=== PATIENT | male | born 1980 | race Caucasian/White ===

== ENCOUNTER → 2016-11-11 | Outpatient (CLI) | payer MEDICARE ==
[2016-11-11 15:50] LABS: HEMOGLOBIN 14.8 gm/dl (14.0-17.5); RED BLOOD COUNT 4.64 M/UL (4.20-5.50); WHITE BLOOD COUNT 3.9 K/UL (4.5-11.0)
[2016-11-11 16:14] LABS: BUN/CREATININE RATIO 10 (0-10)
== END ==
LOC: LAB 15:17
PROVIDERS: Internal Medicine Rheumatology
DX: M33.90 Dermatopolymyositis, unspecified, organ involvement unspecified (principal)
CPT/HCPCS: 36415; 80053; 82550; 85025

== ENCOUNTER → 2021-12-22 | Outpatient (CLI) | payer OTHER ==
[~2021-12-22] MED LIST: DOXYCYCLINE MON50 MG PO; FOLIC ACID 1 MG1 MG PO; IMITREX100 MG PO; LOVENOX SY40 MG/0.4 INJ; METHOTREXATE IM; MULTIVITAMINS1 EAC2 PO; PERCOCET 5/325 T1 EA PO; PLAQUENIL 200200 MG PO; PRISTIQ ER50 MG PO; ZOFRAN4 MG PO
[2021-12-22 17:09] LABS: RED BLOOD COUNT 4.7 M/UL (4.20-5.50); WHITE BLOOD COUNT 4.9 K/UL (4.5-11.0)
[2021-12-22 17:12] LABS: BUN/CREATININE RATIO 11 (0-10)
== END ==
LOC: LAB 16:25
PROVIDERS: Internal Medicine Rheumatology
DX: R52 Pain, unspecified (principal)
CPT/HCPCS: 36415; 80053; 81001; 82550; 85025; 85652; 86140

== ENCOUNTER → 2021-12-23 | Outpatient (CLI) | payer OTHER ==
[2021-12-23 16:45] LABS: HEMOGLOBIN 15.1 gm/dl (14.0-17.5); RED BLOOD COUNT 4.76 M/UL (4.20-5.50); WHITE BLOOD COUNT 3.7 K/UL (4.5-11.0)
[2021-12-23 17:20] LABS: BUN/CREATININE RATIO 9 (0-10)
[2021-12-25 07:13] LABS: RPR Non Reactive (Non Reactive)
[2021-12-25 08:18] LABS: HIV AB/P24 AG SCREEN Non Reactive (Non Reactive)
[2021-12-25 09:18] LABS: HBSAG SCREEN Negative (Negative); HCV AB <0.1 (0.0-0.9); HEP A AB, IGM Negative (Negative); HEP B CORE AB, IGM Negative (Negative)
[2021-12-26 01:07] LABS: CHLAMYDIA TRACHOMATIS, NAA Negative (Negative); NEISSERIA GONORRHOEAE, NAA Negative (Negative)
== END ==
LOC: LAB 16:08
PROVIDERS: Nurse Practitioner Family
DX: G43.909 Migraine, unspecified, not intractable, without status migrainosus (principal); Z11.3 Encounter for screening for infections with a predominantly sexual mode of transmission; Z13.29 Encounter for screening for other suspected endocrine disorder; E53.8 Deficiency of other specified B group vitamins
CPT/HCPCS: 36415; 80053; 80061; 80074; 82607; 84439; 84443; 85025; 86592; 87389

== ENCOUNTER → 2022-03-17 | Outpatient (CLI) | payer OTHER ==
[~2022-03-17] MED LIST changes: +ADDERALL PO; +ADDERALL XR 2020 MG PO; +CALCIPOTRIENE60 ML TOP; +CEPHALEXIN500 MG PO; +CLINDAMYCIN PHO30 ML TOP; +CLONIDINE HCL0.2 MG PO; +CYANOCOBAL1000 MCG/1 INJ; +DESVENLAFAXINE 25 MG PO; +EUCRISA 2% TOP; +GINSENG PO; +HUMIRA40 MG/0.4 INJ; +MAGNESIUM200 MG PO; +METHOTREXATE25 MG/ML INJ; +MUPIROCIN22 GM; +RETIN A 0.1% TOP; +RIZATRIPTAN5 M1 PO; +VITAMIN C1000 MG PO; +ZINC PO
== END ==
LOC: OPSV2 10:00
DX: Z01.810 Encounter for preprocedural cardiovascular examination (principal)
CPT/HCPCS: 93005

== ENCOUNTER → 2022-03-22 | Day surgery (SDC) | payer OTHER ==
[~2022-03-22] MED LIST changes: +HYDROCODON-ACE1 EAC4 PO
== END | disposition home or self-care (01) ==
LOC: OR 06:21
DX: J34.2 Deviated nasal septum (principal); J34.3 Hypertrophy of nasal turbinates; R04.0 Epistaxis
CPT/HCPCS: C1726; J0690; J1100; J1170; J2001; J2250; J2405; J2704; J3010

== ENCOUNTER → 2022-04-02 | Outpatient (CLI) | payer OTHER | LOC: EMI 14:50 | DX: G43.009 Migraine without aura, not intractable, without status migrainosus (principal) | CPT/HCPCS: 70551 ==